=== PATIENT | female | born 1975 | race African-American/Black ===

== ENCOUNTER 2019-07-09 06:46 | Emergency (ER) | payer BC ==
[~2019-07-09] VITALS: Ht 162.6 cm; Wt 77.3 kg
[2019-07-09 06:51] VITALS: Ht 162.6 cm; Wt 77.3 kg
[2019-07-09 07:25] LABS: BASOPHIL % 0.5 % (0-2); PLATELET COUNT 138 x10^3mcL (130-400)
[2019-07-09 07:28] LABS: RED CELL DISTRIBUTION WIDTH 17.1 % (11.5-14.5)
[2019-07-09 07:42] LABS: CALCIUM 9.4 mg/dL (8.5-10.1); CARBON DIOXIDE 27.4 mmol/L (21-32); CHLORIDE SERUM 104 mmol/L (98-107); CREATININE SERUM 0.8 mg/dL (0.6-1.0); GFR1 > 60 mL/min; GLUCOSE SERUM 106 mg/dL (74-106); POTASSIUM SERUM 3.5 mmol/L (3.5-5.1); SODIUM SERUM 139 mmol/L (136-145)
[2019-07-09 07:46] LABS: ALKALINE PHOSPHATASE 85 U/L (46-116); ALT/SGPT 32 U/L (14-59); AST/SGOT 20 U/L (15-37); LIPASE 92 IU/L (73-393); TOTAL PROTEIN, SERUM 7.7 g/dL (6.4-8.2)
[2019-07-09 09:03] VITALS: BP 119/79
== END 2019-07-09 09:03 | disposition home or self-care (01) ==
LOC: ED 06:46
PROVIDERS: Emergency Medicine
DX: S20.219A Contusion of unspecified front wall of thorax, initial encounter (principal); R56.9 Unspecified convulsions; V43.52XA Car driver injured in collision with other type car in traffic accident, initial encounter; Y93.I9 Activity, other involving external motion; Y92.411 Interstate highway as the place of occurrence of the external cause; Y99.8 Other external cause status
CPT/HCPCS: 36415; Q0092